=== PATIENT | female | born 1960 | race Caucasian/White ===

== ENCOUNTER 2017-11-28 10:49 | Outpatient (REF) | payer OTHER, SELFPAY ==
[2017-11-28 21:09] LABS: HCT 42.2 % (36.0-46.0); HGB 13.2 g/dL (12.0-15.5); Mean Corp. HGB Concentration 31.3 g/dL (32.0-36.0); Mean Corpuscular Hemoglobin 26.8 pg (27.0-33.0); Mean Corpuscular Volume 85.6 fL (80-95); Mean Platelet Volume 10.9 fL (8.0-11.0); Platelet Count 326 x1000/uL (130-400); RBC 4.93 m/cumm (4.00-5.20); RBC Distribution Width 16.1 % (11.7-14.6); White Blood Cell Count 7.48 k/cumm (4.4-10.8)
[2017-11-28 21:20] LABS: Bilirubin Negative (Negative); Blood Negative (Negative); Clarity Clear; Glucose Negative (Negative); Ketones Negative (Negative); Leukocyte Esterase Trace (Negative); Nitrite Negative (Negative); Urobilinogen 0.2 EU/dL (Up TO 0.2); pH 5.5 (5-8)
[2017-11-28 21:54] LABS: PROTEIN 12.2 mg/dL
[2017-11-28 22:00] LABS: COMMENT (LAB VIEW ONLY) 115.82 mg/dL
[2017-11-28 22:01] LABS: ALT 26 U/L (12-78); AST 21 U/L (15-37); Albumin 3.4 g/dL (3.4-5.0); Alkaline Phosphatase 88 U/L (46-116); Anion Gap 11.5 mmol/L (3-11); BUN 16 mg/dL (7-18); Bilirubin, Total 0.3 mg/dL (0.2-1.0); CO2 26.5 mmol/L (21.0-32.0); CREATININE 0.86 mg/dL (0.55-1.02); Calcium 9.4 mg/dL (8.5-10.1); Chloride 106 mmol/L (98-107); Glucose 96 mg/dL (70-100); Potassium 4.6 mmol/L (3.5-5.1); Sodium 144 mmol/L (136-145); Total Protein 7.4 g/dL (6.4-8.2); Uric Acid 4.2 mg/dL (2.6-6.0)
[2017-11-28 22:07] LABS: Bacteria Few HPF (Negative); Epithelial Cells Rare HPF (Negative); Other Cells Rare Yeast (Negative); RBC 0-2 (0-2)
[2017-11-28 22:08] LABS: C & S Indicated? Yes; Casts Negative LPF (Negative); Crystals Rare Uric Acid HPF (Negative); Mucus Negative (Negative)
[2017-11-28 22:30] LABS: Cholesterol 178 mg/dL (50-200)
== END 2017-11-28 11:09 ==
LOC: NCHCN 10:49
PROVIDERS: Internal Medicine Nephrology; PCP Internal Medicine; Visit Provider Family Medicine
DX: Z94.0 Kidney transplant status (principal); Z79.899 Other long term (current) drug therapy
CPT/HCPCS: 80053; 80197; 85027; 81003; 81015; 82465; 82565; 83735; 84100; 84156; 84550; 87086

== ENCOUNTER 2018-01-27 14:41 | Outpatient (REF) | payer OTHER, SELFPAY | END 2018-01-27 15:01 | LOC: NCHCN 14:41 | PROVIDERS: PCP Internal Medicine; Visit Provider Registered Nurse | DX: R82.90 Unspecified abnormal findings in urine (principal) | CPT/HCPCS: 87077; 87086; 87186 ==

== ENCOUNTER 2018-09-04 09:42 | Outpatient (REF) | payer OTHER, SELFPAY ==
[2018-09-04 21:47] LABS: ALT 21 U/L (12-78); AST 12 U/L (15-37); Albumin 3.7 g/dL (3.4-5.0); Alkaline Phosphatase 86 U/L (46-116); Anion Gap 7.8 mmol/L (3-11); BUN 18 mg/dL (7-18); Bilirubin, Total 0.4 mg/dL (0.2-1.0); CO2 27.2 mmol/L (21.0-32.0); CREATININE 0.87 mg/dL (0.55-1.02); Chloride 107 mmol/L (98-107); Glucose 93 mg/dL (70-100); HCT 40.3 % (36.0-46.0); HGB 12.6 g/dL (12.0-15.5); Mean Corp. HGB Concentration 31.3 g/dL (32.0-36.0); Mean Corpuscular Hemoglobin 26.6 pg (27.0-33.0); Mean Corpuscular Volume 85.2 fL (80-95); Mean Platelet Volume 10.4 fL (8.0-11.0); PHOSPHORUS 3.6 mg/dL (2.6-4.7); Platelet Count 383 x1000/uL (130-400); Potassium 5.4 mmol/L (3.5-5.1); RBC 4.73 m/cumm (4.00-5.20); Sodium 142 mmol/L (136-145); Total Protein 7.9 g/dL (6.4-8.2); Uric Acid 4.9 mg/dL (2.6-6.0); White Blood Cell Count 7.52 k/cumm (4.4-10.8)
[2018-09-04 22:15] LABS: Bilirubin Negative (Negative); Blood Negative (Negative); Clarity Cloudy (Clear); Glucose Negative (Negative); Ketones Negative (Negative); Leukocyte Esterase Negative (Negative); Nitrite Negative (Negative); Urobilinogen 0.2 EU/dL (Up TO 0.2)
[2018-09-04 22:28] LABS: Cholesterol 183 mg/dL (50-200); PROTEIN 14.6 mg/dL
[2018-09-04 22:52] LABS: COMMENT (LAB VIEW ONLY) 155.84 mg/dL; Prot/Crea Ur Ratio 0.09
[2018-09-11 12:59] LABS: Sirolimus (DHMC) <3.0 ng/ml
== END 2018-09-04 10:02 ==
LOC: LBN 09:42
PROVIDERS: PCP Internal Medicine; Visit Provider Internal Medicine Nephrology
DX: Z94.0 Kidney transplant status (principal); Z79.899 Other long term (current) drug therapy; Z29.8 Encounter for other specified prophylactic measures
CPT/HCPCS: 80053; 80197; 85027; 81003; 82465; 82565; 83735; 84100; 84156; 84550

== ENCOUNTER 2018-09-14 22:24 | Outpatient (REF) | payer OTHER, SELFPAY ==
[2018-09-14 21:30] LABS: Potassium 5.2 mmol/L (3.5-5.1)
== END 2018-09-14 22:44 ==
LOC: NCHCN 22:24
PROVIDERS: Family Medicine; PCP Internal Medicine; Visit Provider Internal Medicine
DX: E87.5 Hyperkalemia (principal)
CPT/HCPCS: 84132

== ENCOUNTER 2018-09-24 09:43 | Outpatient (REF) | payer OTHER, SELFPAY ==
[2018-09-24 21:07] LABS: Potassium 5.1 mmol/L (3.5-5.1)
== END 2018-09-24 10:03 ==
LOC: NCHCN 09:43
PROVIDERS: PCP Internal Medicine; Visit Provider Family Medicine
DX: E87.5 Hyperkalemia (principal)
CPT/HCPCS: 84132

== ENCOUNTER 2018-10-16 12:20 | Outpatient (REF) | payer OTHER, SELFPAY ==
[2018-10-16 21:02] LABS: Potassium 5.3 mmol/L (3.5-5.1)
[2018-10-19 12:00] LABS: Sirolimus 4.3 ng/mL
== END 2018-10-16 12:40 ==
LOC: NCHCN 12:20
PROVIDERS: PCP Internal Medicine; Visit Provider Family Medicine
DX: E87.5 Hyperkalemia (principal); Z94.0 Kidney transplant status
CPT/HCPCS: 80195; 84132

== ENCOUNTER 2018-12-07 09:45 | Outpatient (REF) | payer OTHER, SELFPAY ==
[2018-12-07 20:58] LABS: HCT 42.8 % (36.0-46.0); HGB 13.3 g/dL (12.0-15.5); Mean Corp. HGB Concentration 31.1 g/dL (32.0-36.0); Mean Corpuscular Hemoglobin 26.5 pg (27.0-33.0); Mean Corpuscular Volume 85.3 fL (80-95); Mean Platelet Volume 10.4 fL (8.0-11.0); Platelet Count 409 x1000/uL (130-400); RBC 5.02 m/cumm (4.00-5.20); RBC Distribution Width 15.5 % (11.7-14.6); White Blood Cell Count 8.28 k/cumm (4.4-10.8)
[2018-12-07 20:59] LABS: PROTEIN 22.7 mg/dL
[2018-12-07 21:00] LABS: Prot/Crea Ur Ratio 0.09
[2018-12-07 21:04] LABS: Cholesterol 201 mg/dL (50-200)
[2018-12-07 21:08] LABS: ALT 17 U/L (14-59); AST 16 U/L (15-37); Albumin 3.5 g/dL (3.4-5.0); Alkaline Phosphatase 86 U/L (46-116); BUN 15 mg/dL (7-18); Bilirubin, Total 0.5 mg/dL (0.2-1.0); CREATININE 0.81 mg/dL (0.55-1.02); Calcium 9.3 mg/dL (8.5-10.1); Chloride 107 mmol/L (98-107); Glucose 99 mg/dL (70-100); Magnesium 1.9 mg/dL (1.8-2.4); Potassium 4.5 mmol/L (3.5-5.1); Sodium 144 mmol/L (136-145); Total Protein 7.4 g/dL (6.4-8.2); Uric Acid 4.4 mg/dL (2.6-6.0)
[2018-12-07 21:13] LABS: Bilirubin Negative (Negative); Blood Negative (Negative); Clarity Cloudy (Clear); Glucose Negative (Negative); Ketones Negative (Negative); Leukocyte Esterase Negative (Negative); Nitrite Negative (Negative); Urobilinogen 0.2 EU/dL (Up TO 0.2); pH 5.5 (5-8)
== END 2018-12-07 10:05 ==
LOC: LBO 09:45
PROVIDERS: PCP Internal Medicine; Visit Provider Internal Medicine Nephrology
DX: Z94.0 Kidney transplant status (principal); Z79.899 Other long term (current) drug therapy
CPT/HCPCS: 80053; 85027; 80195; 81003; 82465; 82565; 83735; 84100; 84156; 84550

== ENCOUNTER 2019-01-21 10:22 | Outpatient (REF) | payer OTHER, SELFPAY ==
[2019-01-21 21:53] LABS: PROTEIN 14.1 mg/dL
[2019-01-21 21:56] LABS: Abs Immature Grans 0.02 k/cumm (0.0-0.09); Absolute Basophil Count 0.02 k/cumm (0.0-0.2); Absolute Eosinophil Count 0.09 k/cumm (0.0-0.7); Absolute Monocyte Count 0.81 k/cumm (0.11-0.7); Absolute Neutrophil Count 5.13 k/cumm (1.2-6.7); Basophils % 0.2; Eosinophils % 1.1; HCT 41.2 % (36.0-46.0); HGB 12.7 g/dL (12.0-15.5); Immature Grans % 0.2; Lymphocytes % 25.7; Mean Corp. HGB Concentration 30.8 g/dL (32.0-36.0); Mean Corpuscular Hemoglobin 25.8 pg (27.0-33.0); Mean Corpuscular Volume 83.7 fL (80-95); Monocytes % 9.9; Neutrophils % 62.9; Platelet Count 401 x1000/uL (130-400); RBC 4.92 m/cumm (4.00-5.20); RBC Distribution Width 15.7 % (11.7-14.6); White Blood Cell Count 8.17 k/cumm (4.4-10.8)
[2019-01-21 21:57] LABS: ALT 37 U/L (14-59); AST 33 U/L (15-37); Albumin 3.4 g/dL (3.4-5.0); Alkaline Phosphatase 72 U/L (46-116); Anion Gap 11.2 mmol/L (3-11); BUN 13 mg/dL (7-18); Bilirubin, Total 0.3 mg/dL (0.2-1.0); CO2 23.8 mmol/L (21.0-32.0); COMMENT (LAB VIEW ONLY) 66.99 mg/dL; CREATININE 0.66 mg/dL (0.55-1.02); Calcium 8.5 mg/dL (8.5-10.1); Chloride 106 mmol/L (98-107); Glucose 95 mg/dL (74-106); Magnesium 1.9 mg/dL (1.8-2.4); PHOSPHORUS 2.5 mg/dL (2.6-4.7); Potassium 3.7 mmol/L (3.5-5.1); Prot/Crea Ur Ratio 0.21; Sodium 141 mmol/L (136-145); Total Protein 7.1 g/dL (6.4-8.2); Uric Acid 3.5 mg/dL (2.6-6.0)
[2019-01-21 22:11] LABS: Hemoglobin A1C 5.9 % (4.5-6.2)
== END 2019-01-21 10:42 ==
LOC: NCHCN 10:22
PROVIDERS: PCP Internal Medicine; Visit Provider Registered Nurse
DX: R19.7 Diarrhea, unspecified (principal); Z94.0 Kidney transplant status
CPT/HCPCS: 80053; 82565; 83036; 83735; 84100; 84156; 84550; 85025

== ENCOUNTER 2019-01-25 11:31 | Outpatient (REF) | payer OTHER, SELFPAY ==
[2019-01-25 21:29] LABS: Cholesterol 126 mg/dL (<200)
== END 2019-01-25 11:51 ==
LOC: LBN 11:31
PROVIDERS: PCP Registered Nurse; Visit Provider Internal Medicine Nephrology
DX: Z94.0 Kidney transplant status (principal); Z79.899 Other long term (current) drug therapy; Z29.8 Encounter for other specified prophylactic measures
CPT/HCPCS: 80195; 82465

== ENCOUNTER 2020-01-20 13:23 | Outpatient (REF) | payer OTHER, SELFPAY ==
[2020-01-22 17:09] LABS: COVID-19 RT-PCR Result NEGATIVE (Negative)
== END 2020-01-20 13:43 ==
LOC: NCHCN 13:23
PROVIDERS: PCP Registered Nurse; Visit Provider Nurse Practitioner Family
DX: Z11.59 Encounter for screening for other viral diseases (principal)
CPT/HCPCS: U0003

== ENCOUNTER 2020-01-28 13:18 | Outpatient (REF) | payer OTHER, SELFPAY ==
[2020-01-28 20:34] LABS: HGB 13.4 g/dL (11.2-15.7); MCH 26.1 pg (27.0-33.0); MCHC 30.5 % (32.0-36.0); MCV 85.8 fL (80-95); Platelet Count 367 10^3/uL (130-400); RBC 5.13 10^6/uL (3.93-5.22); RDW 15.2 % (11.7-14.6); RDW-SD 47.9 fL; WBC 9.25 10^3/uL (4.4-10.8)
[2020-01-28 20:39] LABS: Bilirubin Negative (Negative); Blood Negative (Negative); Clarity Clear (Clear); Glucose Negative (Negative); Ketones Negative (Negative); Leukocyte Esterase Negative (Negative); Nitrite Negative (Negative); Specific Gravity 1.025 (1.005-1.025); Urobilinogen 0.2 EU/dL (Up TO 0.2); pH 5.5 (5-8)
[2020-01-28 20:49] LABS: PROTEIN 11.8 mg/dL
[2020-01-28 20:50] LABS: ALT 17 U/L (14-59); AST 15 U/L (15-37); Albumin 3.9 g/dL (3.4-5.0); Alkaline Phosphatase 85 U/L (46-116); Anion Gap 8.4 mmol/L (3-11); BUN 18 mg/dL (7-18); Bilirubin, Total 0.5 mg/dL (0.2-1.0); CO2 27.6 mmol/L (21.0-32.0); CREATININE 0.81 mg/dL (0.55-1.02); Chloride 106 mmol/L (98-107); Glucose 93 mg/dL (74-106); Magnesium 2.1 mg/dL (1.8-2.4); PHOSPHORUS 3.8 mg/dL (2.6-4.7); Potassium 4.5 mmol/L (3.5-5.1); Sodium 142 mmol/L (136-145); Total Protein 8.1 g/dL (6.4-8.2); Uric Acid 3.4 mg/dL (2.6-6.0)
[2020-01-28 21:41] LABS: COMMENT (LAB VIEW ONLY) 113.64 mg/dL
[2020-01-28 23:16] LABS: Cholesterol 201 mg/dL (<200)
[2020-01-31 12:28] LABS: Sirolimus 4.2 ng/mL (See Note)
== END 2020-01-28 13:38 ==
LOC: LBN 13:18
PROVIDERS: PCP Registered Nurse; Visit Provider Internal Medicine Nephrology
DX: Z94.0 Kidney transplant status (principal); Z79.899 Other long term (current) drug therapy
CPT/HCPCS: 80053; 85027; 80195; 81003; 82465; 82565; 83735; 84100; 84156; 84550

== ENCOUNTER 2020-01-31 21:17 | Outpatient (REF) | payer OTHER, SELFPAY ==
[2020-02-01 20:45] LABS: COVID-19 RT-PCR UVMMC Result Negative (Negative)
== END 2020-01-31 21:37 ==
LOC: NCHCN 21:17
PROVIDERS: PCP Registered Nurse; Visit Provider Nurse Practitioner Family
DX: Z20.828 Contact with and (suspected) exposure to other viral communicable diseases (principal)
CPT/HCPCS: U0003

== ENCOUNTER 2020-03-15 18:10 | Outpatient (REF) | payer OTHER, SELFPAY | END 2020-03-15 18:30 | LOC: NCHCN 18:10 | PROVIDERS: PCP Registered Nurse; Visit Provider Nurse Practitioner Family | DX: Z94.0 Kidney transplant status (principal); Z79.899 Other long term (current) drug therapy | CPT/HCPCS: 87077; 87086; 87186 ==

== ENCOUNTER 2020-03-23 23:25 | Outpatient (REF) | payer OTHER, SELFPAY ==
[2020-03-23 14:33] LABS: HCT 41.1 % (36.0-46.0); HGB 12.6 g/dL (11.2-15.7); MCH 25.9 pg (27.0-33.0); MCHC 30.7 % (32.0-36.0); MCV 84.6 fL (80-95); MPV 9.9 fL (8.0-11.0); Platelet Count 435 10^3/uL (130-400); RBC 4.86 10^6/uL (3.93-5.22); RDW 15.1 % (11.7-14.6); RDW-SD 46.4 fL; Reticulocyte 1.1 % (0.5-2.4); WBC 8.14 10^3/uL (4.4-10.8)
[2020-03-23 14:54] LABS: Bilirubin Negative (Negative); Blood Negative (Negative); Clarity Clear (Clear); Glucose Negative (Negative); Ketones Negative (Negative); Leukocyte Esterase Negative (Negative); Nitrite Negative (Negative); Specific Gravity 1.025 (1.005-1.025); Urobilinogen 0.2 EU/dL (Up TO 0.2); pH 5.5 (5-8)
[2020-03-23 15:34] LABS: Creatinine,Urine 118.13 mg/dL
[2020-03-23 15:44] LABS: PROTEIN 10.3 mg/dL
[2020-03-23 15:45] LABS: COMMENT (LAB VIEW ONLY) 117.66 mg/dL; Prot/Crea Ur Ratio 0.08
[2020-03-23 15:47] LABS: Hemoglobin A1C 5.9 % (<5.7)
[2020-03-23 16:07] LABS: ALT 26 U/L (14-59); AST 15 U/L (15-37); Albumin 3.4 g/dL (3.4-5.0); Alkaline Phosphatase 82 U/L (46-116); Anion Gap 9.7 mmol/L (3-11); BUN 16 mg/dL (7-18); Bilirubin, Total 0.4 mg/dL (0.2-1.0); CO2 26.3 mmol/L (21.0-32.0); CREATININE 0.7 mg/dL (0.55-1.02); Calcium 9.5 mg/dL (8.5-10.1); Chloride 106 mmol/L (98-107); Glucose 94 mg/dL (74-106); Magnesium 2.1 mg/dL (1.8-2.4); PHOSPHORUS 3.4 mg/dL (2.6-4.7); Potassium 4.4 mmol/L (3.5-5.1); Sodium 142 mmol/L (136-145); Total Protein 7.5 g/dL (6.4-8.2); Uric Acid 4.1 mg/dL (2.6-6.0)
[2020-03-24 08:51] LABS: Calcium (Random Urine) 7.6 mg/dL (See Note); Magnesium Random Urine 2.8 mg/dL (See Note); Phosphorus Urine 49.4 mg/dL (See Note)
[2020-03-24 09:33] LABS: Parathyroid Hormone,Intact 110 pg/mL (19-88)
[2020-03-24 12:36] LABS: Sirolimus 4.1 ng/mL (See Note)
[2020-03-24 13:09] LABS: Calculated LDL 102 mg/dL (<100); Cholesterol 176 mg/dL (<200); HDL Cholesterol 34 mg/dL (40-60); Triglyceride 200 mg/dL (<150)
[2020-03-24 13:11] LABS: Vitamin D 25 Total 12.3 ng/ml (30-100)
[2020-03-26 17:32] LABS: BK Virus PCR, Quant, U None Detected
[2020-03-29 10:11] LABS: 1,25-Dihydroxyvitamin D 52 pg/mL (18-78)
== END 2020-03-23 23:26 | disposition home or self-care (01) ==
LOC: NCHCN 23:25
PROVIDERS: PCP Registered Nurse; Visit Provider Internal Medicine Nephrology
DX: D84.9 Immunodeficiency, unspecified (principal); E55.9 Vitamin D deficiency, unspecified; Z94.0 Kidney transplant status; Z79.899 Other long term (current) drug therapy; Z29.8 Encounter for other specified prophylactic measures
CPT/HCPCS: 80053; 80061; 82306; 83735; 85027; 87799; 80195; 81003; 82340; 82565; 82652; 83036; 83970; 84100; 84105; 84156; 84550; 85045

== ENCOUNTER 2020-08-04 11:39 | Outpatient (REF) | payer OTHER, SELFPAY ==
[2020-08-04 14:34] LABS: HCT 42.2 % (36.0-46.0); HGB 12.7 g/dL (11.2-15.7); MCH 25.6 pg (27.0-33.0); MCHC 30.1 % (32.0-36.0); MCV 85.1 fL (80-95); MPV 10.5 fL (8.0-11.0); Platelet Count 374 10^3/uL (130-400); RBC 4.96 10^6/uL (3.93-5.22); RDW 16.1 % (11.7-14.6); RDW-SD 50.6 fL; WBC 8.15 10^3/uL (4.4-10.8)
[2020-08-04 14:49] LABS: ALT 24 U/L (14-59); AST 17 U/L (15-37); Albumin 3.5 g/dL (3.4-5.0); Alkaline Phosphatase 85 U/L (46-116); Anion Gap 10.1 mmol/L (3-11); BUN 20 mg/dL (7-18); Bilirubin, Total 0.3 mg/dL (0.2-1.0); CO2 24.9 mmol/L (21.0-32.0); CREATININE 0.8 mg/dL (0.55-1.02); Calcium 9.2 mg/dL (8.5-10.1); Chloride 107 mmol/L (98-107); Glucose 93 mg/dL (74-106); PHOSPHORUS 3.3 mg/dL (2.6-4.7); Potassium 4.5 mmol/L (3.5-5.1); Sodium 142 mmol/L (136-145); Total Protein 7.4 g/dL (6.4-8.2); Uric Acid 3.8 mg/dL (2.6-6.0)
[2020-08-04 14:56] LABS: PROTEIN 11.9 mg/dL
[2020-08-04 14:57] LABS: COMMENT (LAB VIEW ONLY) 106.08 mg/dL; Prot/Crea Ur Ratio 0.11
[2020-08-04 14:59] LABS: Cholesterol 185 mg/dL (<200)
[2020-08-04 15:28] LABS: Bilirubin Negative (Negative); Blood Negative (Negative); Clarity Clear (Clear); Glucose Negative (Negative); Ketones Negative (Negative); Leukocyte Esterase Negative (Negative); Nitrite Negative (Negative); Specific Gravity 1.025 (1.005-1.025); Urobilinogen 0.2 EU/dL (Up TO 0.2); pH 5.5 (5-8)
[2020-08-06 11:28] LABS: Sirolimus 3.9 ng/mL (See Note)
== END 2020-08-04 11:40 | disposition home or self-care (01) ==
LOC: LBN 11:39
PROVIDERS: PCP Registered Nurse; Visit Provider Internal Medicine Nephrology
DX: Z94.0 Kidney transplant status (principal); Z79.899 Other long term (current) drug therapy; Z29.8 Encounter for other specified prophylactic measures
CPT/HCPCS: 80053; 85027; 80195; 81003; 82465; 82565; 83735; 84100; 84156; 84550

== ENCOUNTER 2020-11-24 08:52 | Outpatient (REF) | payer OTHER, SELFPAY ==
[2020-11-24 14:09] LABS: HCT 41.4 % (36.0-46.0); HGB 12.7 g/dL (11.2-15.7); MCH 26.5 pg (27.0-33.0); MCHC 30.7 % (32.0-36.0); MCV 86.3 fL (80-95); MPV 10.8 fL (8.0-11.0); Platelet Count 339 10^3/uL (130-400); RDW 15.8 % (11.7-14.6); RDW-SD 49.8 fL; WBC 7.38 10^3/uL (4.4-10.8)
[2020-11-24 14:21] LABS: ALT 31 U/L (14-59); AST 21 U/L (15-37); Albumin 3.5 g/dL (3.4-5.0); Alkaline Phosphatase 84 U/L (46-116); Anion Gap 9.8 mmol/L (3-11); BUN 17 mg/dL (7-18); Bilirubin, Total 0.3 mg/dL (0.2-1.0); CO2 26.2 mmol/L (21.0-32.0); CREATININE 0.8 mg/dL (0.55-1.02); Calcium 9.3 mg/dL (8.5-10.1); Chloride 107 mmol/L (98-107); Cholesterol 187 mg/dL (<200); Glucose 95 mg/dL (74-106); PHOSPHORUS 3.2 mg/dL (2.6-4.7); Potassium 4.6 mmol/L (3.5-5.1); Sodium 143 mmol/L (136-145); Total Protein 7.5 g/dL (6.4-8.2); Uric Acid 3.6 mg/dL (2.6-6.0)
[2020-11-24 14:31] LABS: Bilirubin Negative (Negative); Blood Negative (Negative); Clarity Clear (Clear); Glucose Negative (Negative); Ketones Negative (Negative); Leukocyte Esterase Negative (Negative); Nitrite Negative (Negative); Specific Gravity 1.025 (1.005-1.025); Urobilinogen 0.2 EU/dL (Up TO 0.2)
[2020-11-24 14:55] LABS: PROTEIN 19.1 mg/dL
[2020-11-24 15:00] LABS: Prot/Crea Ur Ratio 0.13
[2020-12-13 15:13] LABS: Sirolimus (DHMC) <3.0 ng/ml
== END 2020-11-24 08:53 | disposition home or self-care (01) ==
LOC: LBN 08:52
PROVIDERS: PCP Registered Nurse; Visit Provider Internal Medicine Nephrology
DX: Z94.0 Kidney transplant status (principal); Z79.899 Other long term (current) drug therapy
CPT/HCPCS: 80053; 80197; 85027; 81003; 82465; 82565; 83735; 84100; 84156; 84550

== ENCOUNTER 2020-12-12 09:06 | Outpatient (REF) | payer OTHER, SELFPAY ==
[2020-12-12 15:00] LABS: Abs Immature Grans 0.02 10^3/uL (0.0-0.06); Absolute Basophil Count 0.04 10^3/uL (0.0-0.2); Absolute Eosinophil Count 0.17 10^3/uL (0.0-0.7); Absolute Lymphocyte Count 2.45 10^3/uL (1.2-3.4); Absolute Monocyte Count 1.09 10^3/uL (0.1-0.8); Absolute Neutrophil Count 6.84 10^3/uL (1.2-6.7); Basophils % 0.4; Eosinophils % 1.6; HCT 40.9 % (36.0-46.0); HGB 12.3 g/dL (11.2-15.7); Immature Grans % 0.2; Lymphocytes % 23.1; MCHC 30.1 % (32.0-36.0); MCV 86.5 fL (80-95); MPV 10.5 fL (8.0-11.0); Monocytes % 10.3; Neutrophils % 64.4; Nucleated RBC 0 %; Platelet Count 354 10^3/uL (130-400); RBC 4.73 10^6/uL (3.93-5.22); RDW 15.9 % (11.7-14.6); RDW-SD 50.3 fL; WBC 10.61 10^3/uL (4.4-10.8)
[2020-12-12 15:07] LABS: Anion Gap 8.1 mmol/L (3-11); BUN 17 mg/dL (7-18); CO2 27.9 mmol/L (21.0-32.0); CREATININE 0.9 mg/dL (0.55-1.02); Calcium 9.6 mg/dL (8.5-10.1); Chloride 106 mmol/L (98-107); Glucose 92 mg/dL (74-106); Potassium 4.6 mmol/L (3.5-5.1); Sodium 142 mmol/L (136-145)
== END 2020-12-12 09:07 | disposition home or self-care (01) ==
LOC: NCHCN 09:06
PROVIDERS: PCP Registered Nurse; Visit Provider Nurse Practitioner Family
DX: Z94.0 Kidney transplant status (principal)
CPT/HCPCS: 80048; 85025

== ENCOUNTER 2020-12-15 10:14 | Outpatient (REF) | payer OTHER, SELFPAY ==
[2020-12-15 14:37] LABS: Bilirubin Negative (Negative); Blood Negative (Negative); Clarity Sl Cloudy (Clear); Glucose Negative (Negative); Ketones Negative (Negative); Leukocyte Esterase Negative (Negative); Nitrite Negative (Negative); Specific Gravity 1.025 (1.005-1.025); Urobilinogen 0.2 EU/dL (Up TO 0.2); pH 5.5 (5-8)
== END 2020-12-15 10:15 | disposition home or self-care (01) ==
LOC: LBN 10:14
PROVIDERS: PCP Registered Nurse; Visit Provider Internal Medicine Nephrology
DX: N39.0 Urinary tract infection, site not specified (principal)
CPT/HCPCS: 81003; 87086

== ENCOUNTER 2020-12-26 17:57 | Outpatient (REF) | payer OTHER, SELFPAY | END 2020-12-26 17:58 | disposition home or self-care (01) | LOC: NCHCN 17:57 | PROVIDERS: PCP Registered Nurse; Visit Provider Nurse Practitioner Family | DX: N39.0 Urinary tract infection, site not specified (principal) | CPT/HCPCS: 87077; 87086; 87186 ==

== ENCOUNTER 2021-03-01 18:09 | Outpatient (REF) | payer OTHER, SELFPAY | END 2021-03-01 18:10 | disposition home or self-care (01) | LOC: NCHCN 18:09 | PROVIDERS: PCP Registered Nurse; Visit Provider Nurse Practitioner Family | DX: N39.0 Urinary tract infection, site not specified (principal) | CPT/HCPCS: 87077; 87086; 87186 ==

== ENCOUNTER 2021-07-31 15:43 | Outpatient (REF) | payer OTHER, SELFPAY | END 2021-07-31 15:44 | disposition home or self-care (01) | LOC: NCHCN 15:43 | PROVIDERS: PCP Registered Nurse; Visit Provider Nurse Practitioner Family | DX: N39.0 Urinary tract infection, site not specified (principal) | CPT/HCPCS: 87077; 87086; 87186 ==

== ENCOUNTER 2022-03-04 12:52 | Outpatient (REF) | payer BC, SELFPAY ==
[2022-03-04 15:47] LABS: Anion Gap 7.4 mmol/L (3-11); BUN 18 mg/dL (7-18); CO2 29.6 mmol/L (21.0-32.0); CREATININE 0.9 mg/dL (0.55-1.02); Calcium 9.4 mg/dL (8.5-10.1); Chloride 104 mmol/L (98-107); Estimated GFR 72.73 (mL/min/1.73m2); Glucose 95 mg/dL (74-106); Potassium 3.7 mmol/L (3.5-5.1); Sodium 141 mmol/L (136-145)
[2022-03-06 14:34] LABS: COVID-19 RT-PCR UVMMC Result Positive (Negative)
== END 2022-03-04 12:53 | disposition home or self-care (01) ==
LOC: NCHCN 12:52
PROVIDERS: PCP Registered Nurse; Visit Provider Nurse Practitioner Family
DX: I10 Essential (primary) hypertension (principal); U07.1 COVID-19; Z20.822 Contact with and (suspected) exposure to COVID-19
CPT/HCPCS: 80048; U0003

== ENCOUNTER 2022-03-26 21:26 | Outpatient (REF) | payer BC, SELFPAY ==
[2022-03-27 20:16] LABS: COVID-19 RT-PCR UVMMC Result Negative (Negative)
== END 2022-03-26 21:27 | disposition home or self-care (01) ==
LOC: NCHCN 21:26
PROVIDERS: PCP Registered Nurse; Visit Provider Nurse Practitioner Family
DX: U07.1 COVID-19 (principal)
CPT/HCPCS: 86769; U0003

== ENCOUNTER 2022-05-23 12:18 | Outpatient (REF) | payer BC, SELFPAY | END 2022-05-23 12:19 | disposition home or self-care (01) | LOC: NCHCN 12:18 | PROVIDERS: PCP Registered Nurse; Visit Provider Nurse Practitioner Family | DX: Z87.440 Personal history of urinary (tract) infections (principal); R82.998 Other abnormal findings in urine | CPT/HCPCS: 87077; 87086; 87186 ==

== ENCOUNTER 2022-07-24 09:28 | Outpatient (REF) | payer BC, SELFPAY | END 2022-07-24 09:29 | disposition home or self-care (01) | LOC: NCHCN 09:28 | PROVIDERS: PCP Registered Nurse; Visit Provider Registered Nurse | DX: Z87.440 Personal history of urinary (tract) infections (principal); R39.89 Other symptoms and signs involving the genitourinary system | CPT/HCPCS: 87077; 87086; 87186 ==

== ENCOUNTER 2022-09-03 12:57 | Outpatient (REF) | payer BC, SELFPAY ==
[2022-09-03 14:59] LABS: HCT 41.7 % (36.0-46.0); HGB 12.9 g/dL (11.2-15.7); MCH 26.6 pg (27.0-33.0); MCHC 30.9 % (32.0-36.0); MCV 86 fL (80-95); MPV 10.2 fL (8.0-11.0); Platelet Count 365 10^3/uL (130-400); RBC 4.85 10^6/uL (3.93-5.22); RDW 15.6 % (11.7-14.6); RDW-SD 49.2 fL; WBC 9.06 10^3/uL (4.4-10.8)
[2022-09-03 15:24] LABS: Bilirubin Negative (Negative); Blood Negative (Negative); Clarity Clear (Clear); Glucose Negative (Negative); Ketones Negative (Negative); Leukocyte Esterase Negative (Negative); Nitrite Negative (Negative); Specific Gravity 1.025 (1.005-1.025); Urobilinogen 0.2 mg/dL (Up to 0.2)
[2022-09-03 15:28] LABS: ALT 21 U/L (14-59); AST 27 U/L (15-37); Albumin 3.6 g/dL (3.4-5.0); Alkaline Phosphatase 87 U/L (46-116); Anion Gap 6.5 mmol/L (3-11); BUN 16 mg/dL (7-18); Bilirubin, Total 0.5 mg/dL (0.2-1.0); CO2 27.5 mmol/L (21.0-32.0); CREATININE 0.9 mg/dL (0.55-1.02); Calcium 9.6 mg/dL (8.5-10.1); Chloride 108 mmol/L (98-107); Estimated GFR 72.28 (mL/min/1.73m2); Glucose 100 mg/dL (74-106); PHOSPHORUS 3.3 mg/dL (2.6-4.7); Potassium 4.4 mmol/L (3.5-5.1); Sodium 142 mmol/L (136-145); Uric Acid 4.5 mg/dL (2.6-6.0)
[2022-09-03 15:48] LABS: COMMENT (LAB VIEW ONLY) 157.65 mg/dL; Cholesterol 180 mg/dL (<200); Prot/Crea Ur Ratio 0.09
[2022-09-04 12:13] LABS: Sirolimus 3.3 ng/mL (See Note)
== END 2022-09-03 12:58 | disposition home or self-care (01) ==
LOC: LBN 12:57
PROVIDERS: PCP Registered Nurse; Visit Provider Internal Medicine Nephrology
DX: Z29.8 Encounter for other specified prophylactic measures (principal); Z94.0 Kidney transplant status; Z79.899 Other long term (current) drug therapy
CPT/HCPCS: 80053; 85027; 80195; 81003; 82465; 82565; 83735; 84100; 84156; 84550

== ENCOUNTER 2022-12-27 10:24 | Outpatient (REF) | payer BC, SELFPAY ==
[2022-12-27 14:36] LABS: HCT 42.7 % (36.0-46.0); HGB 13.3 g/dL (11.2-15.7); MCH 26.9 pg (27.0-33.0); MCHC 31.1 % (32.0-36.0); MCV 86 fL (80-95); MPV 9.9 fL (8.0-11.0); Platelet Count 407 10^3/uL (130-400); RBC 4.95 10^6/uL (3.93-5.22); RDW 14.6 % (11.7-14.6); RDW-SD 46.6 fL; WBC 9.62 10^3/uL (4.4-10.8)
[2022-12-27 15:03] LABS: COMMENT (LAB VIEW ONLY) 77.93 mg/dL; PROTEIN 9.4 mg/dL; Prot/Crea Ur Ratio 0.12
[2022-12-27 15:20] LABS: Bilirubin Negative (Negative); Blood Negative (Negative); Clarity Clear (Clear); Glucose Negative (Negative); Ketones Negative (Negative); Leukocyte Esterase Negative (Negative); Nitrite Negative (Negative); Urobilinogen 0.2 mg/dL (Up to 0.2); pH 5.5 (5-8)
[2022-12-27 15:33] LABS: Cholesterol 190 mg/dL (<200)
[2022-12-27 16:04] LABS: ALT 26 U/L (14-59); AST 22 U/L (15-37); Albumin 3.5 g/dL (3.4-5.0); Alkaline Phosphatase 83 U/L (46-116); Anion Gap 7.2 mmol/L (3-11); BUN 19 mg/dL (7-18); Bilirubin, Total 0.4 mg/dL (0.2-1.0); CO2 25.8 mmol/L (21.0-32.0); CREATININE 0.8 mg/dL (0.55-1.02); Calcium 9.9 mg/dL (8.5-10.1); Chloride 105 mmol/L (98-107); Estimated GFR 83.26 (mL/min/1.73m2); Glucose 101 mg/dL (74-106); PHOSPHORUS 3.3 mg/dL (2.6-4.7); Potassium 3.9 mmol/L (3.5-5.1); Sodium 138 mmol/L (136-145); Total Protein 8.2 g/dL (6.4-8.2); Uric Acid 3.8 mg/dL (2.6-6.0)
[2022-12-30 12:56] LABS: Sirolimus 4.5 ng/mL (See Note)
== END 2022-12-27 10:25 | disposition home or self-care (01) ==
LOC: LBN 10:24
PROVIDERS: PCP Registered Nurse; Visit Provider Internal Medicine Nephrology
DX: Z94.0 Kidney transplant status (principal); Z79.899 Other long term (current) drug therapy
CPT/HCPCS: 80053; 85027; 80195; 81003; 82465; 82565; 83735; 84100; 84156; 84550

== ENCOUNTER 2023-03-18 09:19 | Outpatient (REF) | payer BC, SELFPAY | END 2023-03-18 09:20 | disposition home or self-care (01) | LOC: NCHCN 09:19 | PROVIDERS: PCP Registered Nurse; Visit Provider Family Medicine | DX: N39.0 Urinary tract infection, site not specified (principal) | CPT/HCPCS: 87077; 87086; 87186 ==

== ENCOUNTER 2023-05-20 15:52 | Outpatient (REF) | payer BC, SELFPAY | END 2023-05-20 15:53 | disposition home or self-care (01) | LOC: NCHCN 15:52 | PROVIDERS: PCP Registered Nurse; Visit Provider Family Medicine | DX: R39.89 Other symptoms and signs involving the genitourinary system (principal) | CPT/HCPCS: 87077; 87086; 87186 ==

== ENCOUNTER 2023-08-20 15:51 | Outpatient (REF) | payer BC, SELFPAY | END 2023-08-20 15:52 | disposition home or self-care (01) | LOC: NCHCN 15:51 | PROVIDERS: PCP Registered Nurse; Visit Provider Family Medicine | DX: N39.0 Urinary tract infection, site not specified (principal) | CPT/HCPCS: 87077; 87086; 87186 ==

== ENCOUNTER 2023-09-05 10:47 | Outpatient (REF) | payer BC, SELFPAY ==
[2023-09-05 14:49] LABS: Abs Immature Grans 0.01 10^3/uL (0.0-0.06); Absolute Basophil Count 0.05 10^3/uL (0.0-0.2); Absolute Eosinophil Count 0.17 10^3/uL (0.0-0.7); Absolute Lymphocyte Count 2.29 10^3/uL (1.2-3.4); Absolute Monocyte Count 0.59 10^3/uL (0.1-0.8); Absolute Neutrophil Count 4.57 10^3/uL (1.2-6.7); Basophils % 0.7 %; Eosinophils % 2.2 %; HCT 43.5 % (36.0-46.0); HGB 13.4 g/dL (11.2-15.7); Immature Grans % 0.1 %; Lymphocytes % 29.8 %; MCH 26.9 pg (27.0-33.0); MCHC 30.8 % (32.0-36.0); MCV 87 fL (80-95); MPV 10.1 fL (8.0-11.0); Monocytes % 7.7 %; Neutrophils % 59.5 %; Platelet Count 395 10^3/uL (130-400); RBC 4.98 10^6/uL (3.93-5.22); RDW 15.6 % (11.7-14.6); RDW-SD 49.6 fL; WBC 7.68 10^3/uL (4.4-10.8)
[2023-09-05 15:11] LABS: ALT 26 U/L (14-59); AST 17 U/L (15-37); Albumin 3.6 g/dL (3.4-5.0); Alkaline Phosphatase 95 U/L (46-116); Anion Gap 9.4 mmol/L (3-11); BUN 16 mg/dL (7-18); Bilirubin, Total 0.65 mg/dL (0.2-1.0); CO2 29.6 mmol/L (21.0-32.0); CREATININE 0.9 mg/dL (0.55-1.02); Calcium 9.6 mg/dL (8.5-10.1); Chloride 105 mmol/L (98-107); Estimated GFR 71.83 (mL/min/1.73m2); Glucose 92 mg/dL (74-106); PHOSPHORUS 3.8 mg/dL (2.6-4.7); Potassium 5.1 mmol/L (3.5-5.1); Sodium 144 mmol/L (136-145); Total Protein 7.4 g/dL (6.4-8.2); Uric Acid 3.1 mg/dL (2.6-6.0)
[2023-09-05 15:12] LABS: Cholesterol 167 mg/dL (<200)
[2023-09-05 16:02] LABS: Bilirubin Negative (Negative); Blood Negative (Negative); Clarity Clear (Clear); Glucose >=1000 mg/dL (Negative); Ketones Negative (Negative); Leukocyte Esterase Trace (Negative); Nitrite Negative (Negative); Urobilinogen 0.2 mg/dL (Up to 0.2); pH 5.5 (5-8)
[2023-09-05 16:11] LABS: COMMENT (LAB VIEW ONLY) 112.09 mg/dL; PROTEIN 13.2 mg/dL; Prot/Crea Ur Ratio 0.11
[2023-09-05 16:27] LABS: Bacteria Rare HPF (Negative); Epithelial Cells Few HPF (Negative); RBC 0-2 HPF (0-2)
[2023-09-05 16:28] LABS: C & S Indicated? No; Casts Negative LPF (Negative); Crystals Negative HPF (Negative); Mucus Negative (Negative)
== END 2023-09-05 10:48 | disposition home or self-care (01) ==
LOC: LBN 10:47
PROVIDERS: PCP Registered Nurse; Visit Provider Internal Medicine Nephrology
DX: Z94.0 Kidney transplant status (principal); Z29.89 Encounter for other specified prophylactic measures; Z79.899 Other long term (current) drug therapy
CPT/HCPCS: 80053; 80195; 81003; 81015; 82465; 82565; 83735; 84100; 84156; 84550; 85025

== ENCOUNTER 2023-12-17 10:15 | Outpatient (REF) | payer BC, SELFPAY ==
[2023-12-17 16:54] LABS: Abs Immature Grans 0.02 10^3/uL (0.0-0.06); Absolute Basophil Count 0.05 10^3/uL (0.0-0.2); Absolute Eosinophil Count 0.13 10^3/uL (0.0-0.7); Absolute Lymphocyte Count 2.06 10^3/uL (1.2-3.4); Absolute Monocyte Count 0.49 10^3/uL (0.1-0.8); Absolute Neutrophil Count 4.85 10^3/uL (1.2-6.7); Basophils % 0.7 %; Eosinophils % 1.7 %; HCT 46.7 % (36.0-46.0); HGB 14.1 g/dL (11.2-15.7); Immature Grans % 0.3 %; Lymphocytes % 27.1 %; MCHC 30.2 % (32.0-36.0); MCV 90 fL (80-95); MPV 10.5 fL (8.0-11.0); Monocytes % 6.4 %; Neutrophils % 63.8 %; Platelet Count 415 10^3/uL (130-400); RBC 5.22 10^6/uL (3.93-5.22); RDW 16.6 % (11.7-14.6); RDW-SD 53.9 fL
[2023-12-17 16:57] LABS: Bilirubin Negative (Negative); Blood Negative (Negative); Clarity Clear (Clear); Glucose 500 mg/dL (Negative); Ketones Negative (Negative); Leukocyte Esterase Negative (Negative); Nitrite Negative (Negative); Urobilinogen 0.2 mg/dL (Up to 0.2); pH 5.5 (5-8)
[2023-12-17 17:17] LABS: Cholesterol 186 mg/dL (<200)
[2023-12-17 17:34] LABS: ALT 22 U/L (14-59); AST 26 U/L (15-37); Albumin 3.7 g/dL (3.4-5.0); Alkaline Phosphatase 103 U/L (46-116); Anion Gap 7.2 mmol/L (3-11); BUN 16 mg/dL (7-18); Bilirubin, Total 0.55 mg/dL (0.2-1.0); CO2 27.8 mmol/L (21.0-32.0); CREATININE 0.9 mg/dL (0.55-1.02); Chloride 108 mmol/L (98-107); Estimated GFR 71.83 (mL/min/1.73m2); Glucose 92 mg/dL (74-106); Magnesium 2.2 mg/dL (1.8-2.4); PHOSPHORUS 3.3 mg/dL (2.6-4.7); Potassium 4.6 mmol/L (3.5-5.1); Sodium 143 mmol/L (136-145); Total Protein 8.5 g/dL (6.4-8.2); Uric Acid 3.4 mg/dL (2.6-6.0)
[2023-12-17 17:38] LABS: Hemoglobin A1C 5.8 % (<5.7)
[2023-12-17 17:50] LABS: Microalb ug/mg Crea 8.5 ug/mg Cr
[2023-12-18 13:33] LABS: Tacrolimus <2.0 ng/mL (See Note)
== END 2023-12-17 10:16 | disposition home or self-care (01) ==
LOC: NCHCN 10:15
PROVIDERS: Internal Medicine Nephrology; PCP Registered Nurse; Visit Provider Family Medicine
DX: Z94.0 Kidney transplant status (principal); Z94.83 Pancreas transplant status; Z79.899 Other long term (current) drug therapy; Z29.89 Encounter for other specified prophylactic measures
CPT/HCPCS: 80053; 80197; 81003; 82043; 82465; 82570; 83036; 83735; 84100; 84550; 85025

== ENCOUNTER 2024-09-01 18:55 | Outpatient (REF) | payer BC, SELFPAY | END 2024-09-01 18:56 | disposition home or self-care (01) | LOC: NCHCN 18:55 | PROVIDERS: PCP Registered Nurse; Visit Provider Nurse Practitioner Family | DX: R39.9 Unspecified symptoms and signs involving the genitourinary system (principal) | CPT/HCPCS: 87086 ==